=== PATIENT | female | born 1940 | race Caucasian/White ===

== ENCOUNTER → 2016-11-03 | Outpatient (CLI) | payer BC ==
[~2016-11-03] MED LIST: ACET325T96 PO; AMLO10TA4 PO; ASPI-435 PO; CETI10TA84 PO; CHOL100010 PO; FAMO40TA6 PO; GLC5 PO; LAMO200T32 PO; LEVO50TA PO; MISC4CAP PO; OMEGCAP2 PO; PRLSR20 PO; ROSU5TAB PO; SERT25TA PO; SPT/ PO
[2016-11-03 19:24] LABS: ALT/SGPT 31 U/L (12-78); AST/SGOT 24 U/L (15-37); BLOOD UREA NITROGEN 12 mg/dl (7-18); CALCIUM 10.6 mg/dl (8.5-10.1); CARBON DIOXIDE 31 mmol/L (21-32); CHLORIDE 105 mmol/L (98-107); CREATININE 0.76 mg/dl (0.60-1.20); GLUCOSE 145 mg/dl (70-99); POTASSIUM 4.2 mmol/L (3.5-5.1); SODIUM 143 mmol/L (136-145)
[2016-11-03 19:28] LABS: ALKALINE PHOSPHATASE 78 U/L (45-117)
== END | disposition home or self-care (01) ==
LOC: C.LAB 16:38
PROVIDERS: ATTEND Urology
DX: N20.1 Calculus of ureter (principal)

== ENCOUNTER → 2016-11-24 | Outpatient (CLI) | payer BC ==
--- NOTE | 2016-11-24 15:57 | DIAGNOSTIC IMAGING REPORT ---
CT OF THE ABDOMEN AND PELVIS WITHOUT CONTRAST CLINICAL HISTORY: Ureteral stone. COMPARISON STUDY: CT of the abdomen and pelvis October 01, 2016, KUB October 06, 2016 and retrograde exam October 04, 2016. TECHNIQUE: Axial images of the abdomen and pelvis were obtained without IV contrast. Images were reviewed in the axial, sagittal, and coronal planes. FINDINGS: There is extensive coronary artery calcification. A left ureteral stent is appropriately positioned. No ureteral or renal calculi are identified. Slight dilatation of the left proximal ureter is diminished since prior exam. There is no hydronephrosis. The calculi shown on exam of October 01, 2016 are no longer visualized. There is mild left periureteral infiltration. A few hypodense hepatic lesions are suboptimally assessed on this unenhanced exam but these are unchanged since earlier studies and are benign. A hypodense splenic lesions also benign. Unenhanced images of the adrenal glands and pancreas are normal. There is no evidence for a bowel obstruction. The appendix is normal. There is no lymphadenopathy. There are scattered colonic diverticula without evidence for acute diverticulitis. IMPRESSION: Appropriately positioned left ureteral stent. No urinary calculi. The calculi shown on exam of October 01, 2016 are no longer visualized. Slight dilatation of the left ureter is diminished since prior exam. Minimal left periureteral infiltration. Electronically signed by: Venancio Baron M.D. 11/24/2016 3:56 PM Dictated Date/Time: 11/24/2016 3:46 PM
== END | disposition home or self-care (01) ==
LOC: C.CTS 15:28
PROVIDERS: ATTEND Urology
DX: N20.1 Calculus of ureter (principal)

== ENCOUNTER → 2017-02-07 | Outpatient (CLI) | payer BC ==
[2017-02-07 17:31] LABS: ALT/SGPT 91 U/L (12-78); AST/SGOT 105 U/L (15-37); BLOOD UREA NITROGEN 15 mg/dl (7-18); BUN/CREATININE RATIO 19.1 (10-20); CALCIUM 9.6 mg/dl (8.5-10.1); CARBON DIOXIDE 29 mmol/L (21-32); CHLORIDE 106 mmol/L (98-107); CREATININE 0.81 mg/dl (0.60-1.20); GLUCOSE 98 mg/dl (70-99); POTASSIUM 4.3 mmol/L (3.5-5.1); SODIUM 141 mmol/L (136-145); URIC ACID 4.6 mg/dl (2.6-7.2)
[2017-02-07 17:34] LABS: ALKALINE PHOSPHATASE 73 U/L (45-117)
[2017-02-08 06:44] LABS: ESTIMATED AVERAGE GLUCOSE 157 mg/dl; HA1C FLAG Normal (Normal)
== END | disposition home or self-care (01) ==
LOC: C.LAB 16:09
PROVIDERS: ATTEND Psychiatry & Neurology Neurology
DX: N20.0 Calculus of kidney (principal); E11.9 Type 2 diabetes mellitus without complications

== ENCOUNTER → 2017-02-09 | Outpatient (CLI) | payer BC ==
[~2017-02-09] MED LIST changes: +GADAVIST IV PRN
--- NOTE | 2017-02-09 14:52 | DIAGNOSTIC IMAGING REPORT ---
MRI OF THE BRAIN COMBO CLINICAL HISTORY: Follow-up meningioma. COMPARISON STUDY: MRI of the brain dated 01/29/2016. TECHNIQUE: MRI of the brain was performed utilizing various T1 and T2-weighted sequences in the axial, sagittal, and coronal planes. Contrast-enhanced sequences were acquired following the administration of 6 cc of Gadavist. FINDINGS: Brain parenchyma: There is right frontal encephalomalacia and postoperative change from meningioma resection. Mild left frontal encephalomalacia is also unchanged. There is associated ex vacuo dilatation of the frontal horn of the lateral ventricles, right greater than left. There is no evidence of recurrent or residual enhancing mass lesion. Mild dural thickening deep to the craniotomy site is likely on a postoperative basis. There is no hemorrhage or mass effect. There is no restricted diffusion to suggest acute ischemia. There are age-related involutional changes noting mild patchy subcortical and periventricular microangiopathic disease. Walsh-white matter differentiation is preserved. No extra-axial fluid collection is seen. The cerebellar tonsils are normal in configuration. Ventricles, sulci, and cisterns: Prominent second or to involutional change. See above. Pituitary and sella: Unremarkable. Intracranial vasculature: Normal flow voids are maintained at the skull base. Orbits: The bony orbits are grossly intact. Orbital contents are normal in appearance. Sinuses and mastoids: Clear. Calvarium: There are postoperative changes from right frontal craniotomy. No destructive calvarial lesion is seen. Cervical cord: Partially visualized cervical spinal cord is normal in morphology and signal intensity. IMPRESSION: 1. No acute intracranial abnormality. 2. Again seen are postoperative changes from right frontal craniotomy and meningioma resection. There is no evidence of recurrent or residual enhancing lesion at the operative site, and there is been no significant change from 01/29/2016. Electronically signed by: Nikolas Townsend M.D. 02/09/2017 2:51 PM Dictated Date/Time: 02/09/2017 2:40 PM
== END | disposition home or self-care (01) ==
LOC: C.MRIBC 13:46
PROVIDERS: ATTEND Psychiatry & Neurology Neurology
DX: D32.9 Benign neoplasm of meninges, unspecified (principal); G40.209 Localization-related (focal) (partial) symptomatic epilepsy and epileptic syndromes with complex partial seizures, not intractable, without status epilepticus

== ENCOUNTER → 2017-04-06 | Outpatient (CLI) | payer BC ==
[~2017-04-06] MED LIST changes: -GADAVIST IV PRN
--- NOTE | 2017-04-07 08:00 | MAMMOGRAPHY REPORT ---
BILATERAL DIGITAL SCREENING MAMMOGRAM WITH CAD: 04/06/2017 CLINICAL HISTORY: Routine screening. Patient has no complaints. TECHNIQUE: Current study was also evaluated with a Computer Aided Detection (CAD) system. Bilateral CC and MLO views were obtained. COMPARISON: Comparison is made to exams dated: 04/05/2016 mammogram, 03/03/2015 mammogram, 02/26/2014 m ammogram, 02/14/2013 mammogram, 02/14/2012 mammogram, and 01/27/2011 mammogram - [facility]. BREAST COMPOSITION: There are scattered areas of fibroglandular density in both breasts. FINDINGS: No suspicious masses, calcifications, or areas of architectural distortion are noted in ei ther breast. There has been no significant interval change compared to prior exams. Scattered bilater al benign-appearing calcifications are not significantly changed. Bilateral asymmetries are stable. IMPRESSION: ACR BI-RADS CATEGORY 2: BENIGN There is no mammographic evidence of malignancy. A 1 year screening mammogram is recommended. The pa tient will receive written notification of the results. Approximately 10% of breast cancers are not detected with mammography. A negative mammographic report should not delay biopsy if a clinically suggestive mass is present. Sarah Andrade M.D. /:04/06/2017 15:55:15 Trim Setter: Karo Javier, [facility] letter sent: Normal 1/2 BI-RADS Code: ACR BI-RADS Category 2: Benign
== END | disposition home or self-care (01) ==
LOC: C.MAMM 15:02
PROVIDERS: ATTEND Internal Medicine
DX: Z12.31 Encounter for screening mammogram for malignant neoplasm of breast (principal)

== ENCOUNTER → 2017-06-05 | Outpatient (CLI) | payer BC ==
[2017-06-05 14:20] LABS: ALT/SGPT 52 U/L (12-78); AST/SGOT 56 U/L (15-37); BLOOD UREA NITROGEN 12 mg/dl (7-18); BUN/CREATININE RATIO 14.8 (10-20); CALCIUM 9.1 mg/dl (8.5-10.1); CARBON DIOXIDE 30 mmol/L (21-32); CHLORIDE 104 mmol/L (98-107); CREATININE 0.83 mg/dl (0.60-1.20); GLUCOSE 125 mg/dl (70-99); POTASSIUM 4.3 mmol/L (3.5-5.1); SODIUM 140 mmol/L (136-145)
[2017-06-05 14:32] LABS: ALKALINE PHOSPHATASE 74 U/L (45-117); CHOLESTEROL 255 mg/dl (0-200); CHOLESTEROL/HDL RATIO 6.5; HDL CHOLESTEROL 39 mg/dl; LDL CHOLESTEROL CALCULATED 172 mg/dl; TRIGLYCERIDES 218 mg/dl (0-150); VERY LOW DENSITY LIPOPROT CALC 44 mg/dl
== END | disposition home or self-care (01) ==
LOC: C.LABBC 10:47
PROVIDERS: ATTEND Urology
DX: R94.5 Abnormal results of liver function studies (principal); E78.5 Hyperlipidemia, unspecified; N20.0 Calculus of kidney; E55.9 Vitamin D deficiency, unspecified; E03.9 Hypothyroidism, unspecified